=== PATIENT | female | born 1965 | race African-American/Black ===

== ENCOUNTER 2018-03-02 08:59 | Outpatient (CLI) | payer OTHER ==
--- NOTE | 2018-03-02 12:11 | MMO ---
BILATERAL SCREENING MAMMOGRAM: Date: 03/02/18 INDICATION: Annual exam. COMPARISON: Prior exams dated 10/23/14 and 02/28/16. FINDINGS: Interpretation of this exam was assisted with computer-aided detection. There are scattered fibroglandular elements bilaterally. There is a new focal asymmetry seen within the upper aspect of the posterior left breast on the MLO p rojection only. This is not definitely seen on the comparison examinations. There is also interval enlargement of an intramammary lymph node within the posterior upper aspect of the left breast that was partially seen in 2015. IMPRESSION: BIRADS 0: Incomplete: Need Additional Imaging Evaluation and/or Prior Mammograms for Comparison There is a new focal asymmetry within the posterior aspect of the upper left breast on the MLO projec tion only that requires further evaluation. Spot magnification compression views in the MLO projectio n are recommended. A LM and exaggerated CCL is recommended of the left breast. Interval enlargement of an intramammary lymph node within the posterior aspect of the left breast see n on the MLO projection only. Ultrasound may be necessary for further evaluation. The facility will notify patient of need for additional imaging services. POS: [facility]
== END 2018-03-02 09:00 | disposition home or self-care (01) ==
LOC: SCSMAMMO 08:59
PROVIDERS: ATTEND Family Medicine
DX: Z12.31 Encounter for screening mammogram for malignant neoplasm of breast (principal); N64.89 Other specified disorders of breast
CPT/HCPCS: 77067

== ENCOUNTER 2018-04-22 08:03 | Outpatient (CLI) | payer OTHER ==
--- NOTE | 2018-04-22 10:23 | ULT ---
LIMITED LEFT BREAST ULTRASOUND: 04/22/2018 PROVIDED CLINICAL HISTORY: Abnormal mammogram findings. FINDINGS: Limited sonographic interrogation of the left breast in the axillary tail was performed in the region of mammographic concern. A normal appearing lymph node is present, corresponding to the mammogram f inding. IMPRESSION: BI-RADS category 2-Benign findings. Return to annual screening mammography. POS: OFF
== END 2018-04-22 08:04 | disposition home or self-care (01) ==
LOC: BICMAMMO 08:03
PROVIDERS: ATTEND Family Medicine
DX: R92.2 Inconclusive mammogram (principal); N63.32 Unspecified lump in axillary tail of the left breast; N64.89 Other specified disorders of breast; Z80.3 Family history of malignant neoplasm of breast
CPT/HCPCS: G0279